=== PATIENT | female | born 2000 | race African-American/Black ===

== ENCOUNTER 2021-11-09 13:44 | Emergency (ER) | payer OTHER ==
[~2021-11-09] VITALS: Ht 162.6 cm; Wt 46.0 kg
[2021-11-09 13:54] VITALS: BP 110/68
[2021-11-09] MEDS ORDERED: KETOROLAC 30MG/ML VIAL IM ONE (14:15)
[2021-11-09 15:29] LABS: CLARITY URINE CLEAR (CLEAR); COLOR URINE YELLOW (YELLOW); KETONES URINE TRACE (NEGATIVE); LEUKOCYTE ESTERASE URINE NEGATIVE (NEGATIVE); NITRITE URINE NEGATIVE (NEGATIVE); OCCULT BLOOD URINE NEGATIVE (NEGATIVE); PROTEIN URINE NEGATIVE (NEGATIVE); UROBILINOGEN URINE 0.2 E.U./dL (0.2-1.0)
[2021-11-09] MEDS ORDERED: ACET-2708 MT (17:28)
[2021-11-09] MEDS ORDERED: PANT20TA17 MT (17:28)
== END 2021-11-09 18:49 | disposition home or self-care (01) ==
LOC: ER 13:44
DX: R10.2 Pelvic and perineal pain (principal); K92.1 Melena
CPT/HCPCS: 76830; 76856; 81003; 81025; 96372; 99284; J1885